=== PATIENT | female | born 1980 | race African-American/Black ===

== ENCOUNTER → 2016-10-27 | Outpatient (CLI) | payer SELFPAY ==
[~2016-10-27] MED LIST: FERROUS GLUCON325 M1 PO; FLEXERIL10 MG PO; HCTZ PO; MONTELUKAST SOD10 MG PO; PHENERGAN25 MG PO; VITAMIN B12-FO1 EACH PO; VITAMIN C500 MG PO
== END | disposition home or self-care (01) ==
LOC: CBAR 11:04
DX: E66.01 Morbid (severe) obesity due to excess calories (principal)
CPT/HCPCS: 76000